=== PATIENT | female | born 2000 | race Caucasian/White ===

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

== ENCOUNTER 2024-01-19 20:01 | Emergency (ER) | payer BC ==
[~2024-01-19] VITALS: Ht 165.1 cm; Wt 72.6 kg
[2024-01-19 20:10] VITALS: BP 123/53
[2024-01-19] MEDS ORDERED: PENICILLIN VK500 MG PO (20:14)
[2024-01-19] MEDS ORDERED: PENICILLIN V POTASSIUM 500 MG TAB PO ONE (20:20)
== END 2024-01-19 20:19 | disposition home or self-care (01) ==
LOC: ED 20:01
DX: K04.7 Periapical abscess without sinus (principal); R22.0 Localized swelling, mass and lump, head; Z98.890 Other specified postprocedural states